=== PATIENT | male | born 1980 | race Caucasian/White ===

== ENCOUNTER 2016-04-01 21:49 | Emergency (ER) | payer OTHER ==
[~2016-04-01] VITALS: Ht 172.7 cm; Wt 77.8 kg
[2016-04-01 22:50] LABS: HEMATOCRIT 42.8 % (38.0-50.0); MCH 30.3 PG (29.0-34.0); MCHC 34.3 G/DL (30.0-36.0); MCV 88.2 FL (86-99); MEAN PLAT.VOLUME 9.5 uM^3 (9.0-12.4); PLATELET COUNT 331 K/uL (156-360); RBC DIS.WIDTH-CV 12.7 % (11.8-14.6); RBC DIS.WIDTH-SD 40.5 % (39-53); RED BLOOD COUNT 4.85 M/uL (4.00-5.50); WHITE BLOOD COUNT 10.3 K/uL (4.1-10.2)
[2016-04-01 22:58] LABS: CHLORIDE 105 mEq/L (99-109); SODIUM 141 mEq/L (136-147)
[2016-04-01 23:00] LABS: GLUCOSE 130 mg/dL (70-99)
[2016-04-01 23:01] LABS: ANION GAP 8 MEQ/L (2-14)
[2016-04-01 23:04] LABS: GFR ESTIMATE (CALCULATED) > 59 mL/min/
[2016-04-01 23:05] LABS: UREA NITROGEN (BUN) 16 mg/dL (9-23)
[2016-04-02] MEDS ORDERED: PREDNISONE5 MG PO (01:25)
[2016-04-02 01:40] VITALS: BP 114/83
== END 2016-04-02 01:40 | disposition home or self-care (01) ==
LOC: EME 21:49 → EXP 21:49
DX: K91.840 Postprocedural hemorrhage of a digestive system organ or structure following a digestive system procedure (principal); K51.90 Ulcerative colitis, unspecified, without complications; Z86.010 Personal history of colon polyps; Z98.890 Other specified postprocedural states; Z79.52 Long term (current) use of systemic steroids
CPT/HCPCS: 80048; 85027; 86850; 86900; 86901; 99281; 99284; J7512